=== PATIENT | male | born 1980 | race African-American/Black ===

== ENCOUNTER 2020-01-29 06:49 | Observation (INO) | payer SELFPAY ==
[2020-01-29] VITALS (9 sets, daily range): BP systolic 127–151; BP diastolic 99–107; PULSE 65–89; RESP 10–18; TEMP 36.4–36.8; O2SAT 99–100; BMI 26.8
--- NOTE | ~2020-01-29 | XR_ITS ---
EXAMINATION: XR chest 2V DATE: 01/29/2020 07:34 INDICATION: Chest pain. TECHNIQUE: Frontal and lateral views of the chest were obtained. COMPARISON: None. FINDINGS: The chest demonstrates clear lungs without pneumonia, pleural effusion, or pneumothorax. Th e heart size is normal. IMPRESSION: 1. No acute cardiopulmonary disease. Reviewed, dictated and finalized at location A.
--- NOTE | 2020-01-29 07:01 | ECG_ITS ---
Measurements Intervals [place] Rate: 89 P: 61 [place]: 142 QRS: 27 QRSD: 98 T: 43 QT: 367 QTc: 447 Interpretive Statements SINUS RHYTHM VOLTAGE CRITERIA FOR LVH BORDERLINE ECG Electronically Signed On 01-29-2020 7:28:17 CDT by Ramon Gómez D.O.
[2020-01-29] MEDS: ASPIRIN 81 MG CHEWABLE TABLET 324 MG PO (07:07)
[2020-01-29 07:12] LABS: Basophils Absolute Auto 0.1 K/mm3 (0.0-0.1); Basophils Percent Auto 0.8 % (0.2-1.2); Eosinophils Absolute Auto 0.2 K/mm3 (0-0.3); Eosinophils Percent Auto 1.7 % (0-4.4); Hematocrit 42.4 % (42.0-52.0); Hemoglobin 14.4 g/dL (14.0-18.0); Immature Granulocyte Absolute 0.03 K/mm3 (0.00-0.031); Immature Granulocyte Percent A 0.3 % (0-0.5); Lymphocytes Absolute Auto 3.43 K/mm3 (0.9-3.2); Lymphocytes Percent Auto 39.3 % (18.3-44.2); Mean Corpuscular Hemoglobin 32.6 pg (26-34); Mean Corpuscular Volume 95.9 fl (80-100); Mean Platelet Volume 9.9 fl (7.4-10.4); Monocytes Absolute Auto 0.8 K/mm3 (0.1-0.6); Monocytes Percent Auto 8.6 % (2.6-8.5); Neutrophils Absolute Auto 4.3 K/mm3 (1.3-6.7); Neutrophils Percent Auto 49.3 % (45.5-73.1); Platelet Count Result 346 k/mm3 (150-375); Red Blood Count 4.42 M/mm3 (4.6-6.20); Red Cell Distribution Width 12.9 % (11.5-14.5); White Blood Count 8.7 K/mm3 (4.5-10.0)
--- NOTE | 2020-01-29 07:17 | ED.CHESTPAIN ---
HPI - Chest Pain General Chief Complaint: Chest Pain Stated Complaint: cp Time Seen by Provider: 01/29/20 07:10 Source: patient Mode of arrival: ambulatory Limitations: no limitations History of Present Illness HPI narrative: 39-year-old male Complains of chest tightness occurring while he was driving to work this morning Discomfort is in the mid anterior chest and radiates to his neck and left hand There are no associated symptoms such as shortness of breath nausea diaphoresis or dizziness He has not had any exertional symptoms recently He smokes and he has high blood pressure and has not taken blood pressure medication for approximately a year He had a similar episode about 2 years ago and was admitted in [facility] and is not aware that he had any abnormal heart tests at that time, but that is when his blood pressure medication was prescribed Related Data Home Medications Medication Instructions Recorded Confirmed No Home Medications 01/29/20 01/29/20 Allergies Allergy/AdvReac Type Severity Reaction Status Date / Time No Known Allergies Allergy Verified 01/29/20 07:00 Review of Systems Review of Systems: All systems reviewed & are unremarkable except as noted in HPI and below Constitutional: Constitutional: Denies chills, Denies fatigue, Denies fever(s), Denies headache(s) and Denies night sweats Eyes: Eyes: Denies loss of vision and Denies other visual disturbances ENT: Denies headache(s), Denies hoarseness and Reports sore throat Cardiovascular: Cardiovascular: Reports no additional cardiovascular complaints, Denies leg edema, Denies palpitations and Denies dyspnea Respiratory: Respiratory: Denies cough, Denies dyspnea and Denies wheezing Gastrointestinal: Gastrointestinal: Denies abdominal pain, Denies diarrhea, Denies nausea and Denies vomiting Genitourinary: Genitourinary: Denies hematuria, Denies dysuria and Denies urinary frequency Musculoskeletal: Musculoskeletal: Denies abnormal gait, Denies deformity, Denies joint swelling, Denies muscle weakness and Denies numbness Integumentary/Breasts: Skin/Breast: Denies rash, Denies unusual bruising and Denies wounds Neurologic: Denies abnormal gait, Denies headache(s), Denies focal weakness, Denies loss of vision and Denies numbness Psychiatric: Psychiatric: Reports no additional psychiatric complaints Endocrine: Endocrine: Denies fatigue and Denies palpitations Hematologic/Lymphatic: Hematologic/Lymphatic: Denies easy bleeding and Denies easy bruising Allergic/Immunologic: Allergic/Immunologic: Denies wheezing Exam Const: General: healthy appearing, no acute distress and well developed Nutritional Appearance: well nourished Orientation/consciousness: patient oriented x3 (alert) and Other orientation findings (Alert) Limitations: no limitations HENMT: Head: normocephalic and atraumatic Ears: external ears normal General nose exam: No nasal discharge present Face and sinus: face symmetric Mouth: Yes tongue normal and Yes moist mucous membranes Throat: other (No exudate, no erythema) Eyes: Conjunctivae: conjunctivae normal Sclera: sclerae normal EOM: EOMs intact bilaterally Neck: Neck: full ROM, no lymphadenopathy and supple Thyroid: thyroid normal Chest: Chest palpation & inspection: no tenderness Resp: Effort & Inspection: normal respiratory effort Auscultation: clear to auscultation bilaterally, no rales, no rhonchi, no wheezes and other (breath sounds equal) Cardio: Rate: regular rate Rhythm: regular rhythm Heart sounds: no gallops and no murmurs GI: Inspection: non-distended GI Palp: Yes Soft to palpation and No Tenderness to palpation present (GI) Auscultation: other (bowel sounds present) Back/Spine/Pelvis: Back: no CVA tenderness Thoracic/Lumbar Spine: thoracic and lumbar spine normal to inspection Skin: General skin exam: normal color and no rashes or lesions noted Neuro: General: patient oriented x3 (al
[2020-01-29 07:19] LABS: INR 0.9; Prothrombin Time 11.7 Seconds (11.1-14.7)
[2020-01-29 07:20] LABS: Partial Thromboplastin Time 26.8 SECONDS (22.3-36.8)
[2020-01-29 07:23] LABS: Anion Gap 8 mmol/L (8-16); Blood Urea Nitrogen 13 mg/dL (9-20); Calcium 9.5 mg/dL (8.4-10.2); Carbon Dioxide 26 mmol/L (22-30); Chloride 103 mmol/L (98-107); Estimated CRCL calculation 98 ml/min; Estimated Glomerular Filt Rate > 60; Glucose 162 mg/dL (75-110); Potassium 3.9 mmol/L (3.4-5.0); Sodium 137 mmol/L (137-145)
[2020-01-29 07:33] LABS: Troponin I < 0.012 ng/mL (0.000-0.034)
--- NOTE | 2020-01-29 09:17 | ADMGEN ---
This patient, Jaime Solano, was admitted to [facility]. Patient/family oriented to hospital policies and general routines including ID bracelet, bed and alarms, visiting hours, pain management, procedures, bathroom and other care routines, personal items, smoking policy, room service/diet, and visiting hours. Valuables list has been completed. Information on how to activate the Rapid Response Team has been discussed. Patient/Family are encouraged to report perceived risks to care and to ask questions if they do not understand what they are told or what they should do.
--- NOTE | 2020-01-29 10:10 | ECG_ITS ---
Measurements Intervals [place] Rate: 65 P: 53 [place]: 155 QRS: 25 QRSD: 90 T: 32 QT: 396 QTc: 414 Interpretive Statements SINUS RHYTHM WITH SINUS ARRHYTHMIA BASELINE ARTIFACT- III NORMAL ECG Electronically Signed On 01-29-2020 10:44:44 CDT by Ramon Gómez D.O.
[2020-01-29 11:34] LABS: Troponin I < 0.012 ng/mL (0.000-0.034)
--- NOTE | 2020-01-29 12:52 | PC.NURSE ---
DR. WALKER AT BEDSIDE TO SEE PT.
--- NOTE | 2020-01-29 12:59 | PM.IMHP ---
H&P: HPI History of Present Illness Date/Time: Date of service:01/29/20 12:59 Chief complaint: CHEST PAIN Narrative: Jaime Solano is a 39 year old male Admitted to our service as a chest Pain Center patient after being seen in the emergency room this morning. The patient states that he has no history of coronary artery disease and while he was driving to work this morning began to notice some central chest tightness that was creating concerned so he drove to the emergency room to be evaluated. He states that when he got to the emergency room he was still symptomatic but the symptoms were already fading away a faded away a short time after being arrival in the ED and being evaluated down there he does not believe they were resolved by any medication that he received in the emergency department. He feels well now does not have any other complaints. His electrocardiograms are unremarkable his biomarkers so far showed the 1st 2 troponin levels are within normal limits. 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 He denies any sense of palpitations syncope presyncope orthopnea PND or edema. He states he was hospitalized for similar symptoms about 2 years ago in [facility] at which time he was told that he had an episode of atrial fibrillation. Some medication was prescribed for a while regarding this he does not remember what it was after the prescription ran out he stopped taking it and did not have any further follow-up. He states that he had a negative stress test during that hospitalization. He does report a history of hypertension for which he is noncompliant with medication and follow-up. He also smokes cigarettes. He does not have any knowledge of diabetes or dyslipidemia his mother has coronary artery disease but not at a premature age. Review of Systems Constitutional: Constitutional: Reports no additional constitutional complaints Eyes: Eyes: Reports no additional eye complaints ENT: Reports system reviewed and no additional complaints, except as documented Cardiovascular: Cardiovascular: Reports as per HPI Respiratory: Respiratory: Reports no additional respiratory complaints Gastrointestinal: Gastrointestinal: Reports no additional gastrointestinal complaints Musculoskeletal: Musculoskeletal: Reports no additional musculoskeletal complaints Integumentary/Breasts: Skin/Breast: Reports system reviewed and no additional complaints, except as docu Neurologic: Reports system reviewed and no additional complaints, except as documented Meds Home Medications and Allergies Home Medications Medication Instructions Recorded Confirmed Type No Home Medications 01/29/20 01/29/20 History Allergies Allergy/AdvReac Type Severity Reaction Status Date / Time No Known Allergies Allergy Verified 01/29/20 10:32 Vital Signs Vital Signs - 24 hr 01/29/20 06:53 01/29/20 07:05 01/29/20 07:16 Temperature 36.8 C Pulse Rate 89 86 Respiratory Rate 18 14 Blood Pressure 151/99 H 142/102 H 137/103 H Pulse Oximetry 100 100 100 01/29/20 08:00 01/29/20 09:07 Temperature Pulse Rate 70 75 Respiratory Rate 10 L 18 Blood Pressure 146/103 H 142/106 H Pulse Oximetry 99 100 Exam Const: General: comfortable and no acute distress Other: Well-developed well-nourished black male comfortable relaxing in bed watching television in no distress of any kind HENMT: Mouth: Yes moist mucous membranes Eyes: Sclera: sclerae normal Pupils: Equal, round and reactive pupils present Neck: Neck: supple and no JVD Thyroid: thyroid normal Other: carotid impulses are intact bilaterally and no bruits are audible over the neck Resp: Effort & Inspection: normal respiratory effort Auscultation: clear to auscultation
--- NOTE | 2020-01-29 13:24 | ECG_ITS ---
Measurements Intervals [place] Rate: 68 P: 54 [place]: 149 QRS: 23 QRSD: 90 T: 35 QT: 390 QTc: 416 Interpretive Statements SINUS RHYTHM WITH SINUS ARRHYTHMIA BASELINE ARTIFACT- II, III, AVF NORMAL ECG Electronically Signed On 01-29-2020 13:33:45 CDT by Ramon Gómez D.O.
[2020-01-29 14:11] LABS: Troponin I < 0.012 ng/mL (0.000-0.034)
--- NOTE | 2020-01-29 14:50 | PM.DS ---
DS: Admitting Diagnosis Admitting Diagnosis Admitting Diagnosis: CHEST PAIN DS: Summary Hospital Course Reason for hospitalization: chest pain Hospital Course: this is a 39-year-old patient who has no previous history of coronary artery disease who was admitted as a chest Pain Center observation patient be after being seen in the emergency room this morning. He developed some mild low substernal chest heaviness while he was driving his car on the way to work this morning. He chose to come to the emergency department for evaluation where he was seen and evaluated. The ER evaluation was unremarkable. His electrocardiogram was normal as were his biomarkers and his cardiac physical exam. He does not describe any history of exertional chest pain compatible with or worrisome worrisome for angina. He does have a history of hypertension and noncompliance with follow-up as well as a history of cigarette smoking. In the chest Pain Center the patient remained comfortable. His electrocardiogram remained unchanged and his biomarkers were normal x3 sets. As acute coronary syndrome was ruled out he was allowed to be discharged to home. He did report a hospitalization approximately 2 years ago in [place] the surgery where he had similar symptoms and was told that he had an episode of atrial fibrillation. He describes having had a negative evaluation then and a unremarkable stress test at that time. He does not recall ever being recommended to be anticoagulated. Time spent discussing smoking cessation with patient: 3 to 10 minutes Status at Discharge Functional status at discharge: independent ambulation Overall status at discharge: patient is back to baseline Time Spent with Patient Time attestation: Total time spent providing and/or coordinating discharge services: Time spent: Greater than 30 minutes Exam Const: General: comfortable and no acute distress HENMT: Mouth: Yes moist mucous membranes Eyes: Sclera: sclerae normal Pupils: Equal, round and reactive pupils present Neck: Neck: supple and no JVD Thyroid: thyroid normal Other: Carotid pulses are normal bilaterally and are free of bruits. Resp: Effort & Inspection: normal respiratory effort Auscultation: clear to auscultation bilaterally Cardio: Rate: regular rate Rhythm: regular rhythm Other: No audible murmur gallop or rub Skin: General skin exam: normal color Extrem: General: normal to inspection Psych: Affect: normal affect DS: Data Data Completed and Pending Labs on day of discharge: Labs from last 24 hours 01/29/20 01/29/20 01/29/20 13:35 11:06 07:06 WBC RBC Hgb Hct MCV MCH MCHC RDW Plt Count MPV Immature Gran % (Auto) Neut % (Auto) Lymph % (Auto) [place] % (Auto) Eos % (Auto) Baso % (Auto) Lymph # (Auto) [place] # (Auto) Eos # (Auto) Baso # (Auto) Abs Immat Gran (auto) Absolute Neuts (auto) Absolute Nucleated RBC Nucleated RBC % PT INR APTT Sodium 137 Potassium 3.9 Chloride 103 Carbon Dioxide 26 Anion Gap 8 BUN 13 Creatinine 1.00 Estim Creat Clear Calc 98 Estimated GFR > 60 Glucose 162 H Calcium 9.5 Troponin I < 0.012 < 0.012 < 0.012 01/29/20 01/29/20 07:06 07:06 WBC 8.7 RBC 4.42 L Hgb 14.4 Hct 42.4 MCV 95.9 MCH 32.6 MCHC 34.0 RDW 12.9 Plt Count 346 MPV 9.9 Immature Gran % (Auto) 0.3 Neut % (Auto) 49.3 Lymph % (Auto) 39.3 [place] % (Auto) 8.6 H Eos % (Auto) 1.7 Baso % (Auto) 0.8 Lymph # (Auto) 3.43 H [place] # (Auto) 0.8 H Eos # (Auto) 0.2 Baso # (Auto) 0.1 Abs Immat Gran (auto) 0.03 Absolute Neuts (auto) 4.3 Absolute Nucleated RBC 0.0 Nucleated RBC % 0.0 PT 11.7 INR 0.9 APTT 26.8 Sodium Potassium Chloride Carbon Dioxide Anion Gap BUN Creatinine Estim Creat Clear Calc Estimated GFR Glucose Calcium Troponin I
--- NOTE | 2020-01-29 15:30 | PC.NURSE ---
DISCHARGED HOME, OUT AMBULATORY TO SIGNIFICANT OTHER'S WAITING CAR, WITH ALL PERSONAL BELONGINGS AND DISCHARGE PACKET. VOICES NO C/O. NO DISTRESS NOTED.
== END 2020-01-29 15:30 | disposition home or self-care (01) ==
LOC: ANHED 08:33 → ANHCPC 08:47
PROVIDERS: General Practice; Admitting Provider Specialist; Emergency Provider Emergency Medicine; Visit Provider Specialist
DX: R07.2 Precordial pain (principal); I10 Essential (primary) hypertension; F17.210 Nicotine dependence, cigarettes, uncomplicated
CPT/HCPCS: 36415; 71046; 80048; 84484; 85025; 85610; 85730; 93005; 99285; A9270; G0378; G0379